=== PATIENT | male | born 1960 | race Caucasian/White ===

== ENCOUNTER 2021-10-29 15:51 | Inpatient (IN) | payer SELFPAY ==
[~2021-10-29] VITALS: Ht 170.2 cm; Wt 97.5 kg
[2021-10-29 17:25] LABS: BASOPHILS ABSOLUTE AUTO 0.04 K/mm3 (0.00-0.23); BASOPHILS PERCENT AUTO 0 % (0-2); EOSINOPHILS PERCENT AUTO 2 % (0-6); Hematocrit 43.8 % (37.0-53.0); Hemoglobin 14.2 g/dL (13.5-17.5); IMMATURE GRAN ABSOLUTE AUTO 0.05 K/mm3 (0.00-0.10); IMMATURE GRAN PERCENT AUTO 0 % (0-1); LYMPHOCYTES ABSOLUTE AUTO 1.77 K/mm3 (0.84-5.20); LYMPHOCYTES PERCENT AUTO 14 % (21-46); MONOCYTES ABSOLUTE AUTO 0.89 K/mm3 (0.16-1.47); MONOCYTES PERCENT AUTO 7 % (4-13); Mean Corpuscular HGB 28.7 pg (26.0-34.0); Mean Corpuscular HGB Conc 32.4 g/dL (31.5-36.5); Mean Corpuscular Volume 89 fL (80-100); Mean Platelet Volume 9.1 fL (9.1-12.4); NEUTROPHILS ABSOLUTE AUTO 9.66 K/mm3 (1.96-9.15); NEUTROPHILS PERCENT AUTO 77 % (41-73); Platelet Count 166 K/mm3 (150-400); RDW Coefficient Variation 14.3 % (11.7-14.2); RDW Standard Deviation 45.5 fL (35.1-46.3); Red Blood Cell Count 4.95 M/mm3 (4.30-5.90); White Blood Cell Count 12.61 K/mm3 (4.00-11.30)
[2021-10-29 17:38] LABS: International Normalized Ratio 1.09; Prothrombin Time Results 11.4 Sec (9.7-11.5)
[2021-10-29] MEDS ORDERED: ASPI81CH PO (17:41)
[2021-10-29 17:42] LABS: Alanine Aminotransfer (ALT/SGP 43 U/L (12-78); Albumin, Blood 4.2 g/dL (3.4-5.0); Albumin/Globulin Ratio 0.9 (0.8-1.8); Alk Phos 77 U/L (50-136); Anion Gap 6 mmol/L (6-16); Aspartate Aminotrans (AST/SGOT 26 U/L (12-37); Bilirubin, Total 0.5 mg/dL (0.1-1.0); Blood Urea Nitrogen 17 mg/dL (8-24); Bun/Creatinine Ratio 20.6 (12.0-20.0); CO2, Blood 27 mmol/L (21-32); Calcium, Blood 9.5 mg/dL (8.5-10.1); Chloride, Blood 105 mmol/L (98-108); Creatinine, Blood 0.83 mg/dL (0.60-1.20); Globulin, Blood 4.5 g/dL (2.2-4.0); Glomerular Filtration Rate >60 (60-); Glucose, Blood 136 mg/dL (70-99); Sodium, Blood 138 mmol/L (136-145); Total Protein, Blood 8.7 g/dL (6.4-8.2)
[2021-10-30 01:42] LABS: Anion Gap 9 mmol/L (6-16); Blood Urea Nitrogen 19 mg/dL (8-24); Bun/Creatinine Ratio 20.7 (12.0-20.0); CO2, Blood 25 mmol/L (21-32); Chloride, Blood 106 mmol/L (98-108); Creatinine, Blood 0.92 mg/dL (0.60-1.20); Glomerular Filtration Rate >60 (60-); Glucose, Blood 149 mg/dL (70-99); Potassium, Blood 3.8 mmol/L (3.5-5.5); Sodium, Blood 140 mmol/L (136-145)
[2021-10-30 01:43] LABS: BASOPHILS ABSOLUTE AUTO 0.06 K/mm3 (0.00-0.23); BASOPHILS PERCENT AUTO 1 % (0-2); EOSINOPHILS ABSOLUTE AUTO 0.21 K/mm3 (0.00-0.68); EOSINOPHILS PERCENT AUTO 2 % (0-6); Hematocrit 40.7 % (37.0-53.0); Hemoglobin 13.2 g/dL (13.5-17.5); IMMATURE GRAN ABSOLUTE AUTO 0.06 K/mm3 (0.00-0.10); IMMATURE GRAN PERCENT AUTO 1 % (0-1); LYMPHOCYTES ABSOLUTE AUTO 4.22 K/mm3 (0.84-5.20); LYMPHOCYTES PERCENT AUTO 36 % (21-46); MONOCYTES ABSOLUTE AUTO 0.87 K/mm3 (0.16-1.47); MONOCYTES PERCENT AUTO 7 % (4-13); Mean Corpuscular HGB 28.6 pg (26.0-34.0); Mean Corpuscular HGB Conc 32.4 g/dL (31.5-36.5); Mean Corpuscular Volume 88 fL (80-100); Mean Platelet Volume 9.2 fL (9.1-12.4); NEUTROPHILS ABSOLUTE AUTO 6.38 K/mm3 (1.96-9.15); NEUTROPHILS PERCENT AUTO 54 % (41-73); Platelet Count 165 K/mm3 (150-400); RDW Coefficient Variation 14.5 % (11.7-14.2); RDW Standard Deviation 45.9 fL (35.1-46.3); Red Blood Cell Count 4.62 M/mm3 (4.30-5.90)
[2021-10-30 01:46] LABS: International Normalized Ratio 1.1; Prothrombin Time Results 11.5 Sec (9.7-11.5)
--- NOTE | 2021-10-30 06:30 | NUR ---
SHIFT SUMMARY: ASSUMED CARE OF PATIENT AT 0200, PATIENT IS RESING IN BED WITH EYES CLOSED. IV INFUSING HEP GTT AT 18UNITS/KG/HR. IV SITE WNL. CALL LIGHT WITHIN REACH. BED LOCKED IN LOWEST POSITION. ASSESSMENT DEFFERED PATIENT IS ASLEEP. CHART, ORDERS, VITALS, AND LABS REVIEWED. RETURNED FROM BREAK AND HEP GTT WAS ADJUSTED TO 16UN/KG/HR PER PHARMACY BY RUSSEL EDWARDS.
--- NOTE | 2021-10-30 07:58 | NUR ---
NEW IR CONSULT FOR LLE DVT. CALLED DR. GAVIN' PAGER ([phone]), NO REPLY. CALLED PROVIDER'S CELL PHONE ([phone]), LEFT VM, AWAITING CALL BACK.
--- NOTE | 2021-10-30 15:14 | NUR ---
PATIENT OFF UNIT TO IR VIA HIS BED. HEPARIN GTT SENT WITH PT. FOLLOWING, HAS PT BELONGINGS.
--- NOTE | 2021-10-30 18:08 | NUR ---
PT ARRIVES TO ICU AT 1700. LEFT LEG SWOLLEN AND RED FROM FEET TO THIGH. PT STATES PAIN IN LEG HAS IMPROVED FROM EARLIER IN THE DAY, AT A 3/10 CURRENTLY. ROOM AIR. NSR. AT BEDSIDE.
--- NOTE | 2021-10-31 02:14 | NUR ---
JOSE HAS BEEN DOING WELL SINCE THE START OF THE SHIFT, HE HAS ALTEPASE AT 1MG AND HEPARIN @ 10ML/HR INFUSING INTO THE LEFT INFERIOR MEDIAL ASPECT OF HIS ANKLE. IT IS FLOWING WELL AND WITHOUT ANY INDICATION OF LEAKING. HIS LEFT LEG IS TAUT, FIRM, BUT NOT HOT TO THE TOUCH. FAINT PULSES ARE FELT IN THE DORSAL PEDIALIS. THE COLOR IS DIFFERENT FROM THE RIGHT, THE SIZE IS ALSO MUCH LARGER THAN THE RIGHT. THE LEFT LEG HAS THE SWELLING AND DISCOLORATION CLEAR UP TO THE GROIN. PT IS TRYING TO REST AT THIS TIME. NO COMPLAINTS.
[2021-10-31 05:35] LABS: BASOPHILS ABSOLUTE AUTO 0.04 K/mm3 (0.00-0.23); BASOPHILS PERCENT AUTO 0 % (0-2); EOSINOPHILS ABSOLUTE AUTO 0.18 K/mm3 (0.00-0.68); EOSINOPHILS PERCENT AUTO 2 % (0-6); Hematocrit 37.7 % (37.0-53.0); Hemoglobin 12.1 g/dL (13.5-17.5); IMMATURE GRAN ABSOLUTE AUTO 0.04 K/mm3 (0.00-0.10); IMMATURE GRAN PERCENT AUTO 0 % (0-1); LYMPHOCYTES ABSOLUTE AUTO 2.46 K/mm3 (0.84-5.20); LYMPHOCYTES PERCENT AUTO 23 % (21-46); MONOCYTES PERCENT AUTO 10 % (4-13); Mean Corpuscular HGB 28.7 pg (26.0-34.0); Mean Corpuscular HGB Conc 32.1 g/dL (31.5-36.5); Mean Corpuscular Volume 89 fL (80-100); Mean Platelet Volume 9.1 fL (9.1-12.4); NEUTROPHILS ABSOLUTE AUTO 7.12 K/mm3 (1.96-9.15); NEUTROPHILS PERCENT AUTO 65 % (41-73); Platelet Count 110 K/mm3 (150-400); RDW Standard Deviation 45.6 fL (35.1-46.3); Red Blood Cell Count 4.22 M/mm3 (4.30-5.90); White Blood Cell Count 10.94 K/mm3 (4.00-11.30)
--- NOTE | 2021-10-31 05:38 | NUR ---
JOSE HAS SLEPT ON AND OFF THIS SHIFT. HE CONTINUES ON HEPARIN @ 10ML/HR AND ALTEPASE @ 1MG VIA THE PORT IN HIS ANKLE. WE WERE ABLE TO DRAW AM LABS FROM IT THIS MORNING. HE SAYS THAT IT IS FEELING LESS TIGHT AND HE IS ABLE TO MOVE IT AND HAVE IT BE TOUCHED WITHOUT THE PAIN. HE IS ANXIOUS TO GET THE PROCEDURE DONE AND OVER. HE HASN'T NEEDED OR REQUESTED ANY MEDICATION THIS SHIFT. HE HAS BEEN NPO SINCE 0200. WILL CONTINUE TO MONITOR AND TREAT AND REPORT OFF TO NEXT SHIFT WHEN ABLE.
[2021-10-31 06:00] LABS: Anion Gap 7 mmol/L (6-16); Blood Urea Nitrogen 18 mg/dL (8-24); Bun/Creatinine Ratio 20.5 (12.0-20.0); CO2, Blood 26 mmol/L (21-32); Calcium, Blood 8.1 mg/dL (8.5-10.1); Chloride, Blood 107 mmol/L (98-108); Creatinine, Blood 0.88 mg/dL (0.60-1.20); Glomerular Filtration Rate >60 (60-); Glucose, Blood 127 mg/dL (70-99); Potassium, Blood 3.5 mmol/L (3.5-5.5); Sodium, Blood 140 mmol/L (136-145)
--- NOTE | 2021-10-31 15:13 | NUR ---
PT BACK FROM [employer] WITH 2 POPLITEAL ACCESS SITES. DORSALIS PEDAL PULSES FAINTLY PALPABLE. LLE PINK, 2+EDEMA. PT INSTRUCTED ON KEEPING KNEES STRAIGHT. DIET ORDERED FOR PT PER DR. GAVIN OK. PT VOIDED AND URINE IS DARK MAROON COLORED, WHICH DR. GAVIN SAID IS EXPECTED AFTER USING ANGIOJET. PT DENIES PAIN. CONTINUING TO MONITOR.
--- NOTE | 2021-10-31 18:24 | NUR ---
PT HAS BEEN HAVING TROUBLE VOIDING WHILE LAYING DOWN. UP TIME ISN'T FOR ANOTHER HOUR, PT'S BOTTOM IS COVERED IN A RED RASH FROM OISTURE EXPOSURE WELL. PT REQUESTING CATHETER UNTIL HE CAN GET UP AND MOVE. DISCUSSED WITH DR. GAVIN AND BILLINGS PLACED UNTIL HE CAN GET UP AND PEE. PT TOLERATED WELL.
[2021-10-31 18:31] LABS: Source, Urine Foley catheter
[2021-10-31 18:38] LABS: Appearance, Urine Cloudy (Clear); Bilirubin, Urine Neg (Neg); Blood, Urine 5+ (Neg); Color, Urine Brown (P-Yellow); Glucose Qualitative, Urine Neg (Neg); Ketones, Urine 1+ (Neg); Leukocyte Esterase, Urine Neg (Neg); Nitrite, Urine Neg (Neg); Protein, Urine 4+ (Neg); Specific Gravity, Urine 1.015 (1.003-1.022); Urobilinogen, Urine NORM (Normal); pH, Urine 6.5 (5.0-8.0)
[2021-10-31 18:57] LABS: Amorphous Mod (0-Heavy); Bacteria Many /hpf
[2021-10-31 19:00] LABS: Squamous Epithelial Cells Rare /hpf (Few)
--- NOTE | 2021-10-31 19:26 | NUR ---
ASSUMED CARE PATIENT LYING IN BED SLEEPING-EASILY AROUSABLE FROM SLEEP W/ VERBAL STIMULI. ALERT AND ORIENTED, PLEASANT AND COOPERATIVE. HEPARIN INFTO 20G PIV. URINARY CATHETER IN PLACE DRAINING RED CLEAR URINE. LT POPLITEAL DRESSING OOZING FROM ACCESS SITE. NO OOZING FROM RT POPLITEAL. FOOD TRAY AT BEDSIDE, TELEVISION ON, AND CALL LIGHT IN REACH.
--- NOTE | 2021-11-01 01:08 | NUR ---
TRANSFERRED BED TO CHAIR AND BACK PATIENT WAS ABLE TO TRANSFER FROM BED TO CHAIR WITH MINIMAL ASSISTANCE AND MOSTLY VERBAL CUES. SAT IN CHAIR FOR ABOUT 45 MINUTES-1 HOUR. UPON GETTING BACK IN BED THERE WAS MINIMAL AMOUNT OF BLOOD OOZING FROM LT POPLITEAL SITE. PULSES STILL FAINT IN SHAKIR PEDAL AND TIBIAL. AMOUNT OF OOZING HAS GREATLY DECREASED AND PATIENT MAKES NO COMPLAINTS OF PAIN AND STATES "THIS SWELLING IS LOOKING SO MUCH BETTER" WHEN LOOKING AT LEFT LEG. CALL LIGHT WITHIN REACH.
--- NOTE | 2021-11-01 04:13 | NUR ---
SHIFT SUMMARY LT KNEE OOZING SLOWED SUBSTANTIALLY, ALTHOUGH STILL OOZING MINIMALLY. SHAKIR PEDAL PULSES FAINT, SHAKIR TIBIAL PULSES VERY FAINT. RT LEG BECOMING INCREASINGLY WARM TO TOUCH. PATIENT DENIED PAIN IN BLE T/O SHIFT. PATIENT WAS UP TO CHAIR ONCE DURING SHIFT TO ALLEVIATE LT HIP PN THAT WAS NOT RELEIVED WITH FENTANYL AND TYLENOL. LT HIP PN IS PRESENT AT BASELINE D/T ARTHRITIS. PAIN WAS IMMEDIATELY RELIEVED BY SITTING FOR SHORT TIME. AFTER TRANSFERRING BACK TO BED PATIENT SLEPT FOR THE REST OF SHIFT. BILLINGS STILL PATENT AND DRAING DARK YELLOW URINE WITH CLOTS-TOTAL OF 1200ML URINE OUT. HEPARIN INF @ 18UNITS/KG/HR TO RT AC IV. PATIENT HAD EPISODES OF SLEEP APNEA AFTER FALLING ASLEEP THIS MORNING- 4 LPM PLACED ON PATIENT TO KEEP SATS ABOVE 90%. WHEN AWAKE PATIENT IS MID TO HIGH 90'S ON ROOM AIR. APPETITE INCREASED DURING SHIFT AND WAS ABLE TO EAT WITHOUT NAUSEA. NO OTHER CHANGES DURING SHIFT.
[2021-11-01 08:40] LABS: Hematocrit 37.2 % (37.0-53.0); Hemoglobin 11.7 g/dL (13.5-17.5)
[2021-11-01] MEDS ORDERED: ENOX100I SC (11:35)
[2021-11-01] MEDS ORDERED: Acetaminophen650 M1 PO (11:36)
--- NOTE | 2021-11-01 12:04 | NUR ---
REASSESSMENT PT'S DRESSING ON HIS POPLITEAL ACCESS SITES CHANGED THIS MORNING. R SIDE HAD NO OOZING OVERNIGHT SO TEGADERM PLACED OVER THAT SITE. L SIDE STILL HAD A LITTLE OOZING SO SITE WRAPPED WITH GAUZE AND KERLEX. PT AMBULATED AROUND THE UNIT AND SITE STILL LOOKED STABLE. ABOUT AN HOUR LATER WHEN PT GOT UP TO SHOWER THE GAUZE CAME LOOSE AND SITE HAD A STEADY DRIP OF BLOOD OFF OF IT. REWRAPPED WITH PRESSURE DRESSING WHILE PT TOOK A SHOWER AND THEN REWRAPPED WITH ANOTHER PRESSURE DRESSING WHEN PT WAS DONE SHOWERING. DR. GAVIN INFORMED AND ADVISED TO LEAVE PRESSURE DRESSING ON AND TO DELAY DISCHARGE TILL THIS AFTERNOON. PT INFORMED OF THIS AND AGREEABLE. JUST NOW PT SAID THE DRESSING WAS STARTING TO FEEL TOO TIGHT SO REWRAPPED SITE WITH LESS PRESSURE, BUT LEFT THE SAME GAUZE ON TO AVOID DISRUPTING ANY CLOT THAT FORMED. GAUZE WAS MOSTLY DRY AND SO FAR THERE IS NO NEW OOZING WITH LOOSER DRESSING. CONTINUING TO MONITOR CLOSELY. PT RECEIVED FIRST LOVENOX INJECTION THIS MORNING, HEPARIN GTT STOPPED AT THAT TIME. PT STATES HE HAS BEEN ON LOVENOX BEFORE AND HE HAS HIS BERTHA EHIM THE INJECTIONS, WHICH SHE IS COMFORTABLE DOING.
--- NOTE | 2021-11-01 15:01 | NUR ---
PT'S LEFT POPLITEAL SITE HAS CONTINUED TO BE STABLE AFTER AMBULATING AN HOUR AGO AND WITH JUST A LIGHT PRESSURE DRESSING. TALKED WITH PT AND HE STATES HE FEELS COMFORTABLE GOING HOME. TALKED WITH HIM ABOUT WHAT TO DO IF IT STARTS BLEEDING AT HOME AND PT VERBALIZES UNDERSTANDING OF INSTRUCTIONS. PT SENT HOME WITH SUPPLIES TO DRESS POPLITEAL SITES. GIVEN ACTIVITY AND DRESSING INSTRUCTIONS, WHICH HE VERBALIZED UNDERSTANDING.
--- NOTE | 2021-11-01 15:57 | NUR ---
PT DISCHARGED VIA PRIVATE VEHICLE WITH HIS . ALL BELONGINGS SENT WITH PT. DISCHARGE INSTRUCTIONS REVIEWED WITH PT AND HIS .
== END 2021-11-01 15:54 | disposition home or self-care (01) | DRG 270 ==
LOC: ER 15:51 → MEDS 18:32 → ICUW 10-30 17:14
PROVIDERS: Hospitalist; Internal Medicine; Physician Assistant; Student in an Organized Health Care Education/Training Program; ADMIT Family Medicine
PROC: B5191ZZ Fluoroscopy of Inferior Vena Cava using Low Osmolar Contrast (ICD-10-PCS; 2021-10-30)
PROC: B51H1ZZ Fluoroscopy of Bilateral Pelvic (Iliac) Veins using Low Osmolar Contrast (ICD-10-PCS; 2021-10-30)
PROC: B51D1ZZ Fluoroscopy of Bilateral Lower Extremity Veins using Low Osmolar Contrast (ICD-10-PCS; 2021-10-30)
PROC: 06CC3ZZ Extirpation of Matter from Right Common Iliac Vein, Percutaneous Approach (ICD-10-PCS; principal; 2021-10-31)
PROC: 047C3DZ Dilation of Right Common Iliac Artery with Intraluminal Device, Percutaneous Approach (ICD-10-PCS; 2021-10-31)
PROC: 06C03ZZ Extirpation of Matter from Inferior Vena Cava, Percutaneous Approach (ICD-10-PCS; 2021-10-31)
PROC: 06CN3ZZ Extirpation of Matter from Left Femoral Vein, Percutaneous Approach (ICD-10-PCS; 2021-10-31)
PROC: 06CY3ZZ Extirpation of Matter from Lower Vein, Percutaneous Approach (ICD-10-PCS; 2021-10-31)
PROC: 06CD3ZZ Extirpation of Matter from Left Common Iliac Vein, Percutaneous Approach (ICD-10-PCS; 2021-10-31)
PROC: 06CG3ZZ Extirpation of Matter from Left External Iliac Vein, Percutaneous Approach (ICD-10-PCS; 2021-10-31)
PROC: B5191ZZ Fluoroscopy of Inferior Vena Cava using Low Osmolar Contrast (ICD-10-PCS; 2021-10-31)
PROC: B51H1ZZ Fluoroscopy of Bilateral Pelvic (Iliac) Veins using Low Osmolar Contrast (ICD-10-PCS; 2021-10-31)
PROC: B51D1ZZ Fluoroscopy of Bilateral Lower Extremity Veins using Low Osmolar Contrast (ICD-10-PCS; 2021-10-31)
PROC: B54DZZ3 Ultrasonography of Bilateral Lower Extremity Veins, Intravascular (ICD-10-PCS; 2021-10-31)
PROC: 067D3ZZ Dilation of Left Common Iliac Vein, Percutaneous Approach (ICD-10-PCS; 2021-10-31)
DX: T82.868A Thrombosis due to vascular prosthetic devices, implants and grafts, initial encounter (principal); I82.220 Acute embolism and thrombosis of inferior vena cava; I82.412 Acute embolism and thrombosis of left femoral vein; I82.4Z2 Acute embolism and thrombosis of unspecified deep veins of left distal lower extremity; L97.919 Non-pressure chronic ulcer of unspecified part of right lower leg with unspecified severity; I82.421 Acute embolism and thrombosis of right iliac vein; R00.0 Tachycardia, unspecified; D72.829 Elevated white blood cell count, unspecified; F41.9 Anxiety disorder, unspecified; I87.8 Other specified disorders of veins; Z88.5 Allergy status to narcotic agent; Z86.711 Personal history of pulmonary embolism; Z79.82 Long term (current) use of aspirin; Z86.718 Personal history of other venous thrombosis and embolism; Y71.3 Surgical instruments, materials and cardiovascular devices (including sutures) associated with adverse incidents
CPT/HCPCS: 36415; 37187; 37212; 37214; 37238; 37248; 37252; 37253; 51702; 74177; 75820; 75825; 76937; 80048; 80053; 81001; 83880; 84484; 85014; 85018; 85025; 85347; 85520; 85610; 87086; 93005; 93010; 93971; 96365; 99152; 99153; 99285-25; A9270; C1725; C1753; C1757; C1769; C1876; C1887; C1894; J1644; J1650; J2250; J2997; J3010; J7030; J7040; Q9967

== ENCOUNTER → 2022-02-03 | Outpatient (CLI) | payer MEDICARE ==
[~2022-02-03] MED LIST: ASPI81CH PO; Acetaminophen650 M1 PO; ENOX100I SC
[2022-02-03 17:19] LABS: BASOPHILS ABSOLUTE AUTO 0.07 K/mm3 (0.00-0.23); BASOPHILS PERCENT AUTO 1 % (0-2); EOSINOPHILS ABSOLUTE AUTO 0.12 K/mm3 (0.00-0.68); EOSINOPHILS PERCENT AUTO 2 % (0-6); Hematocrit 44.3 % (37.0-53.0); Hemoglobin 14.2 g/dL (13.5-17.5); IMMATURE GRAN ABSOLUTE AUTO 0.01 K/mm3 (0.00-0.10); IMMATURE GRAN PERCENT AUTO 0 % (0-1); LYMPHOCYTES ABSOLUTE AUTO 2.92 K/mm3 (0.84-5.20); LYMPHOCYTES PERCENT AUTO 43 % (21-46); MONOCYTES ABSOLUTE AUTO 0.59 K/mm3 (0.16-1.47); MONOCYTES PERCENT AUTO 9 % (4-13); Mean Corpuscular HGB Conc 32.1 g/dL (31.5-36.5); Mean Corpuscular Volume 87 fL (80-100); Mean Platelet Volume 9.6 fL (9.1-12.4); NEUTROPHILS ABSOLUTE AUTO 3.12 K/mm3 (1.96-9.15); NEUTROPHILS PERCENT AUTO 46 % (41-73); Platelet Count 268 K/mm3 (150-400); RDW Coefficient Variation 13.8 % (11.7-14.2); RDW Standard Deviation 44.1 fL (35.1-46.3); Red Blood Cell Count 5.07 M/mm3 (4.30-5.90); White Blood Cell Count 6.83 K/mm3 (4.00-11.30)
[2022-02-03 17:40] LABS: Alanine Aminotransfer (ALT/SGP 43 U/L (12-78); Alk Phos 78 U/L (50-136); Anion Gap 8 mmol/L (6-16); Aspartate Aminotrans (AST/SGOT 22 U/L (12-37); Bilirubin, Total 0.4 mg/dL (0.1-1.0); Blood Urea Nitrogen 17 mg/dL (8-24); CHOL/HDL RATIO 5.4; CO2, Blood 25 mmol/L (21-32); Calcium, Blood 9.4 mg/dL (8.5-10.1); Chloride, Blood 108 mmol/L (98-108); Cholesterol 233 mg/dL (50-200); Ferritin, Serum 49 ng/mL (26-388); Globulin, Blood 3.9 g/dL (2.2-4.0); Glucose, Blood 138 mg/dL (70-99); HDL Cholesterol 43 mg/dL (>39); Iron Serum 72 ug/dL (65-175); LDL/HDL RATIO 3.9; Low Density Lipoprotein Chol 166 mg/dL (0-110); Percent Saturation 18.3 % (20.0-50.0); Potassium, Blood 4.4 mmol/L (3.5-5.5); Sodium, Blood 141 mmol/L (136-145); Total Iron Binding Capacity 394 ug/dL (250-450); Total Protein, Blood 7.9 g/dL (6.4-8.2); Triglycerides 122 mg/dL (30-160); Very Low Density Lipoprot Chol 24 mg/dL (6-32)
[2022-02-03 17:42] LABS: Bun/Creatinine Ratio 18.7 (12.0-20.0); Creatinine, Blood 0.91 mg/dL (0.60-1.20); Glomerular Filtration Rate 97 (60-)
== END | disposition home or self-care (01) ==
LOC: LAB SHORT 09:00
PROVIDERS: Nurse Practitioner Family
DX: Z13.6 Encounter for screening for cardiovascular disorders (principal); R73.9 Hyperglycemia, unspecified; D68.2 Hereditary deficiency of other clotting factors
CPT/HCPCS: 80053; 80061; 82728; 83036; 83540; 83550; 85025

== ENCOUNTER → 2023-06-02 | Outpatient (CLI) | payer MEDICARE ==
[2023-06-02 19:07] LABS: Creatinine, Urine Random 99.4 mg/dL (27.00-270.00)
[2023-06-02 19:08] LABS: Microalb/Creat Ratio UR, Rand 8.763 mg/g (0.000-30.000); Microalbumin, Random Urine 8.71 mg/L (0.000-20.000)
[2023-06-02 19:09] LABS: BASOPHILS ABSOLUTE AUTO 0.05 K/mm3 (0.00-0.23); BASOPHILS PERCENT AUTO 1 % (0-2); EOSINOPHILS PERCENT AUTO 1 % (0-6); Hematocrit 44.7 % (37.0-53.0); Hemoglobin 14.5 g/dL (13.5-17.5); IMMATURE GRAN ABSOLUTE AUTO 0.03 K/mm3 (0.00-0.10); IMMATURE GRAN PERCENT AUTO 0 % (0-1); LYMPHOCYTES ABSOLUTE AUTO 2.37 K/mm3 (0.84-5.20); LYMPHOCYTES PERCENT AUTO 22 % (21-46); MONOCYTES ABSOLUTE AUTO 0.74 K/mm3 (0.16-1.47); MONOCYTES PERCENT AUTO 7 % (4-13); Mean Corpuscular HGB 27.6 pg (26.0-34.0); Mean Corpuscular HGB Conc 32.4 g/dL (31.5-36.5); Mean Corpuscular Volume 85 fL (80-100); Mean Platelet Volume 9.2 fL (9.1-12.4); NEUTROPHILS ABSOLUTE AUTO 7.33 K/mm3 (1.96-9.15); NEUTROPHILS PERCENT AUTO 69 % (41-73); Platelet Count 292 K/mm3 (150-400); RDW Coefficient Variation 15.1 % (11.7-14.2); RDW Standard Deviation 46.7 fL (35.1-46.3); Red Blood Cell Count 5.25 M/mm3 (4.30-5.90); White Blood Cell Count 10.62 K/mm3 (4.00-11.30)
[2023-06-02 20:28] LABS: Magnesium, Blood 2.1 mg/dL (1.6-2.4); Percent Saturation 29.2 % (20.0-50.0); Thyroid Stimulating Hormone 3.48 uIU/mL (0.360-4.800)
== END ==
LOC: LAB SHORT 17:22 → LAB 17:22
PROVIDERS: Family Medicine
DX: E11.65 Type 2 diabetes mellitus with hyperglycemia (principal); D50.9 Iron deficiency anemia, unspecified; Z79.899 Other long term (current) drug therapy
CPT/HCPCS: 82043; 82570; 82607; 82728; 82746; 83540; 83550; 83735; 84443; 85025

== ENCOUNTER → 2024-11-26 | Outpatient (CLI) | payer MEDICARE ==
[2024-11-26 18:01] LABS: BASOPHILS ABSOLUTE AUTO 0.05 K/mm3 (0.00-0.23); BASOPHILS PERCENT AUTO 1 % (0-2); EOSINOPHILS ABSOLUTE AUTO 0.18 K/mm3 (0.00-0.68); EOSINOPHILS PERCENT AUTO 2 % (0-6); Hematocrit 50.6 % (37.0-53.0); Hemoglobin 16.3 g/dL (13.5-17.5); IMMATURE GRAN ABSOLUTE AUTO 0.03 K/mm3 (0.00-0.10); IMMATURE GRAN PERCENT AUTO 0 % (0-1); LYMPHOCYTES ABSOLUTE AUTO 2.93 K/mm3 (0.84-5.20); LYMPHOCYTES PERCENT AUTO 27 % (21-46); MONOCYTES PERCENT AUTO 7 % (4-13); Mean Corpuscular HGB 29.3 pg (26.0-34.0); Mean Corpuscular HGB Conc 32.2 g/dL (31.5-36.5); Mean Corpuscular Volume 91 fL (80-100); Mean Platelet Volume 9.1 fL (9.1-12.4); NEUTROPHILS PERCENT AUTO 63 % (41-73); Platelet Count 231 K/mm3 (150-400); RDW Coefficient Variation 14.4 % (11.7-14.2); RDW Standard Deviation 47.2 fL (35.1-46.3); Red Blood Cell Count 5.57 M/mm3 (4.30-5.90); White Blood Cell Count 10.89 K/mm3 (4.00-11.30)
[2024-11-26 18:16] LABS: Alanine Aminotransfer (ALT/SGP 43 U/L (12-78); Albumin, Blood 2.8 g/dL (3.4-5.0); Albumin/Globulin Ratio 0.5 (0.8-1.8); Anion Gap 10 mmol/L (3-11); Aspartate Aminotrans (AST/SGOT 25 U/L (12-37); Bilirubin, Total 0.7 mg/dL (0.1-1.0); Blood Urea Nitrogen 25 mg/dL (8-24); Bun/Creatinine Ratio 27.2 (12.0-20.0); CHOL/HDL RATIO 3.1; CO2, Blood 29 mmol/L (21-32); Calcium, Blood 9.7 mg/dL (8.5-10.1); Chloride, Blood 106 mmol/L (98-108); Cholesterol 191 mg/dL (50-200); Creatinine, Blood 0.92 mg/dL (0.60-1.20); Globulin, Blood 5.4 g/dL (2.2-4.0); Glomerular Filtration Rate 94 (60-); Glucose, Blood 133 mg/dL (70-99); HDL Cholesterol 61 mg/dL (>39); LDL/HDL RATIO 1.7; Low Density Lipoprotein Chol 103 mg/dL (0-110); Potassium, Blood 4.6 mmol/L (3.5-5.5); Sodium, Blood 140 mmol/L (136-145); Total Protein, Blood 8.2 g/dL (6.4-8.2); Triglycerides 137 mg/dL (30-160); Very Low Density Lipoprot Chol 27 mg/dL (6-32)
[2024-11-26 18:23] LABS: Alk Phos 78 U/L (50-136); PSA, %Free 13.9 %
[2024-11-30 11:00] LABS: TESTOSTERONE, FREE BY DIALYSIS 37.4 pg/mL (47.0-244.0); TESTOSTERONE, TOTAL MASS SPEC 221.4 ng/dL (300.0-720.0)
== END | disposition home or self-care (01) ==
LOC: LAB SHORT 16:29 → LAB 16:29
PROVIDERS: Nurse Practitioner Family
DX: E11.65 Type 2 diabetes mellitus with hyperglycemia (principal); E78.5 Hyperlipidemia, unspecified; R03.0 Elevated blood-pressure reading, without diagnosis of hypertension; R53.81 Other malaise; R53.83 Other fatigue; R97.20 Elevated prostate specific antigen [PSA]
CPT/HCPCS: 80053; 80061; 83036; 84153; 84154; 84402; 84403; 84443; 85025